=== PATIENT | female | born 1940 | race Hispanic/Latino ===

== ENCOUNTER 2019-06-12 21:30 | Emergency (ER) | payer OTHER ==
[2019-06-12] MEDS ORDERED: NA CHLORIDE 0.9% 1,000 ML ONE (22:27)
[2019-06-12] MEDS ORDERED: FENTANYL CITR 100 MCG/2 ML ONE (22:27)
[2019-06-12] MEDS ORDERED: ONDANSETRON 4 MG/2 ML VIAL ONE (22:27)
[2019-06-12 22:29] LABS: Absolute Lymphocytes (CBC) 1.9 K/uL (0.7-4.9); Basophils % 0.4 % (0-1.3); Hematocrit 35.3 % (36.0-45.0); Lymphocytes % 24.8 % (15.3-44.8); MPV 10.5 fL (7.6-11.3); RBC Red Blood Cell Count 4.18 M/uL (3.86-4.86)
[2019-06-12 22:45] LABS: Albumin 3.1 g/dL (3.4-5.0); Bilirubin Direct 0.1 mg/dL (0-0.2); Bilirubin Total 0.2 mg/dL (0.2-1.0); Potassium 3.9 mmol/L (3.5-5.1); Protein, Total 7.1 g/dL (6.4-8.2)
[2019-06-12 23:54] LABS: Urine Blood NEGATIVE (NEG); Urine Glucose TRACE (NEG); Urine Protein 2+ (NEG); Urine Specific Gravity >1.030 (1.005-1.030)
[2019-06-12 23:55] LABS: Calcium Oxalate Crystals- Ur MODERATE (NONE SEEN); Urine Bacteria >50 /HPF (<20); Urine Culture Reflex Order REFLEXED; Urine RBC NONE SEEN /HPF (NONE SEEN)
[2019-06-13] MEDS ORDERED: CEFTRIAXONE 1000 MG/VIAL ONE (00:49)
[2019-06-13] MEDS ORDERED: NA CHLORIDE 0.9% 50 ML IV ONE (00:49)
--- NOTE | 2019-06-13 01:17 | EDPHYS ---
Physician Documentation [facility] Name: Alexa Palacios Age: 78 yrs Sex: Female : 1940 Arrival Date: 06/12/2019 Time: 21:33 Bed 28 Private MD: ED Physician Faheem Bedoya HPI: 06/13 01:18 This 78 yrs old Female presents to ER via Wheelchair with complaints of Abd gs Pain > 50 y/o. 01:18 The patient presents with abdominal pain in the lower abdomen. Onset: The gs symptoms/episode began/occurred yesterday. The symptoms do not radiate. Associated signs and symptoms: Pertinent positives: nausea and vomiting. The symptoms are described as intermittent. Modifying factors: The symptoms are alleviated by nothing, the symptoms are aggravated by nothing. Severity of pain: At its worst the pain was moderate in the emergency department the pain is unchanged. The patient has experienced similar episodes in the past, a few times. Historical: - Allergies: 06/12 21:34 No Known Allergies; la1 - PMHx: 21:34 Diabetes - NIDDM; Hypertension; la1 - PSHx: 21:34 Cholecystectomy; ; Appendectomy; la1 - Immunization history:: Adult Immunizations up to date. - Social history:: Smoking status: Patient/guardian denies using tobacco. - Ebola Screening: : No symptoms or risks identified at this time. ROS: 06/13 01:18 All other systems are negative. gs Exam: 01:18 Head/Face: Normocephalic, atraumatic. Eyes: Pupils equal round and reactive to light, gs extra-ocular motions intact. Lids and lashes normal. Conjunctiva and sclera are non-icteric and not injected. Cornea within normal limits. Periorbital areas with no swelling, redness, or edema. ENT: Nares patent. No nasal discharge, no septal abnormalities noted. Tympanic membranes are normal and external auditory canals are clear. Oropharynx with no redness, swelling, or masses, exudates, or evidence of obstruction, uvula midline. Mucous membranes moist. Neck: Trachea midline, no thyromegaly or masses palpated, and no cervical lymphadenopathy. Supple, full range of motion without nuchal rigidity, or vertebral point tenderness. No Meningismus. Chest/axilla: Normal chest wall appearance and motion. Nontender with no deformity. No lesions are appreciated. Cardiovascular: Regular rate and rhythm with a normal S1 and S2. No gallops, murmurs, or rubs. Normal PMI, no JVD. No pulse deficits. Respiratory: Lungs have equal breath sounds bilaterally, clear to auscultation and percussion. No rales, rhonchi or wheezes noted. No increased work of breathing, no retractions or nasal flaring. 01:18 Back: No spinal tenderness. No costovertebral tenderness. Full range of motion. Skin: Warm, dry with normal turgor. Normal color with no rashes, no lesions, and no evidence of cellulitis. MS/ Extremity: Pulses equal, no cyanosis. Neurovascular intact. Full, normal range of motion. Neuro: Awake and alert, GCS 15, oriented to person, place, time, and situation. Cranial nerves II-XII grossly intact. Motor strength 5/5 in all extremities. Sensory grossly intact. Cerebellar exam normal. Normal gait. 01:18 Constitutional: The patient appears alert, awake. 01:18 ECG was reviewed by the Attending Physician. 01:18 Abdomen/GI: Palpation: moderate abdominal tenderness, in the right lower quadrant and left lower quadrant, rebound tenderness, is not appreciated. Vital Signs: 06/12 21:37 Pulse 77; Resp 16; Temp 97.8; Pulse Ox 97% on R/A; Weight 112.49 kg; Height 5 ft. 1 in. la1 (154.94 cm); Pain 8/10; 21:37 BP 104 / 71; la1 22:38 BP 114 / 55; Pulse 70; Resp 16; Pulse Ox 95% on R/A; la1 06/13 00:20 BP 110 / 55; Pulse 73; Resp 16; Pulse Ox 97% on 2 lpm NC; la1 01:37 BP 115 / 74; Pulse 73; Resp 16; Pulse Ox 98% on R/A; la1 06/12 21:37 Body Mass Index 46.86 (112.49 kg, 154.94 cm) la1 MDM: 06/12 22:07 Patient medically screened. 06/13 01:18 Differential diagnosis: AAA, pancreatitis, urinary tract infection. Data reviewed: vital signs, nurses notes, lab test result(s), EKG, radiologic studies. Counseling: I had a detailed discussion with the patient and/or guardian regarding: the historical points, exam findings, and any diagnostic results supporting the discharge/admit diagnosis, the need for outpatient follow up. Response to treatment: the patient's symptoms have markedly improved after treatment. 06/12 22:08 Order name: Basic Metabolic Panel; Complete Time: 00:40 06/12 22:08 Order name: CBC with Diff 06/12 22:08 Order name: Hepatic Function 06/12 22:08 Order name: Lipase 06/12 22:08 Order name: Urine Microscopic Only; Complete Time: 00:40 06/12 22:11 Order name: CBC with Automated Diff; Complete Time: 00:40 EDMS 06/12 22:08 Order name: CT Abd/Pelvis - IV Contrast Only 06/12 22:47 Order name: Liver (Hepatic) Function; Complete Time: 00:40 EDMS 06/12 22:47 Order name: Lipase; Complete Time: 00:40 EDMS 06/12 23:36 Order name: Abdomen EDNY 06/12 23:41 Order name: Urine Dipstick--Ancillary (enter results); Complete Time: 00:40 mw2 06/12 23:59 Order name: Urine Culture [facility] 06/12 22:08 Order name: IV Saline Lock; Complete Time: 22:30 06/12 22:08 Order name: Labs collected and sent; Complete Time: 22:30 06/12 22:08 Order name: EKG - Nurse/Tech; Complete Time: 22:36 06/12 22:08 Order name: Urine Dipstick-Ancillary (obtain specimen); Complete Time: 23:49 gs EC:18 Rate is 71 beats/min. Rhythm is regular. MS interval is normal. QRS interval is normal. gs T waves are Normal. No ST changes noted. Clinical impression: Abnormal EKG without significant change. Interpreted by me. Administered Medications: 06/12 22:32 Drug: Zofran 4 mg Route: IVP; Site: left forearm; la1 23:51 Follow up: Response: No adverse reaction :32 Drug: fentaNYL (PF) 25 mcg {Note: rass 1.} Route: IVP; Site: left forearm; la1 23:50 Follow up: Response: RASS: Alert and Calm (0) la1 22:32 Drug: NS 0.9% 1000 ml Route: IV; Rate: 125 ml/hr; Site: left forearm; la1 06/13 01:39 Follow up: IV Status: Infusion continued upon admission la1 00:50 Drug: Rocephin - (cefTRIAXone) 1 grams Route: IVPB; Infused Over: 30 mins; Site: left la1 forearm; 01:39 Follow up: IV Status: Completed infusion la1 Disposition: 06/13/19 01:17 Discharged to Home. Impression: Lower abdominal pain, unspecified, Urinary tract infection, site not specified. - Condition is Stable. - Discharge Instructions: Abdominal Pain, Adult, Urinary Tract Infection, Adult, [id number]. - Prescriptions for Keflex 500 mg Oral Capsule - take 1 capsule by ORAL route every 12 hours for 7 days; 14 capsule. - Medication Reconciliation Form, Thank You Letter, Antibiotic Education, Prescription Opioid Use form. - Follow up: Private Physician; When: 2 - 3 days; Reason: Re-evaluation by your physician. Signatures: Dispatcher [employer] [facility] Sahil Clayton RN RN la1 Faheem Bedoya MD MD Corrections: (The following items were deleted from the chart) 01:43 01:17 06/13/2019 01:17 Discharged to Home. Impression: Lower abdominal pain, la1 unspecified; Urinary tract infection, site not specified. Condition is Stable. Forms are Medication Reconciliation Form, Thank You Letter, Antibiotic Education, Prescription Opioid Use. Follow up: Private Physician; When: 2 - 3 days; Reason: Re-evaluation by your physician. gs
--- NOTE | 2019-06-13 01:17 | ER ---
Nurse's Notes [facility] Name: Alexa Palacios Age: 78 yrs Sex: Female : 1940 Arrival Date: 06/12/2019 Time: 21:33 Bed 28 Private MD: Diagnosis: Lower abdominal pain, unspecified;Urinary tract infection, site not specified Presentation: 06/12 21:34 Presenting complaint: Patient states: I have been having bad abd pain since 1500, la1 vomited x1, normal BM this morning. Transition of care: patient was not received from another setting of care. Onset of symptoms was June 12, 2019. Risk Assessment: Do you want to hurt yourself or someone else? Patient reports no desire to harm self or others. Initial Sepsis Screen: Does the patient meet any 2 criteria? No. Patient's initial sepsis screen is negative. Does the patient have a suspected source of infection? No. Patient's initial sepsis screen is negative. Care prior to arrival: None. 21:34 Method Of Arrival: Wheelchair la1 21:34 Acuity: ÁNGELA 3 la1 Historical: - Allergies: 21:34 No Known Allergies; la1 - PMHx: 21:34 Diabetes - NIDDM; Hypertension; la1 - PSHx: 21:34 Cholecystectomy; ; Appendectomy; la1 - Immunization history:: Adult Immunizations up to date. - Social history:: Smoking status: Patient/guardian denies using tobacco. - Ebola Screening: : No symptoms or risks identified at this time. Screenin:59 Abuse screen: Denies threats or abuse. Denies injuries from another. Nutritional aj1 screening: No deficits noted. Tuberculosis screening: No symptoms or risk factors identified. Assessment: 21:59 General: Appears in no apparent distress. uncomfortable, Behavior is calm, cooperative, aj1 appropriate for age. Pain: Complains of pain in right lower quadrant and left lower quadrant Pain does not radiate. Neuro: Level of Consciousness is awake, alert, obeys commands. Cardiovascular: Patient's skin is warm and dry. Respiratory: Airway is patent Respiratory effort is even, unlabored, Respiratory pattern is regular, symmetrical. GI: Abdomen is round non-distended, Bowel sounds present X 4 quads. Abd is soft X 4 quads Abdomen is tender to palpation X 4 quads. Reports nausea, vomiting, Patient currently denies diarrhea. : No signs and/or symptoms were reported regarding the genitourinary system. EENT: No signs and/or symptoms were reported regarding the EENT system. Derm: No signs and/or symptoms reported regarding the dermatologic system. Skin is pink, warm \T\ dry. normal. Musculoskeletal: No signs and/or symptoms reported regarding the musculoskeletal system. Circulation, motion, and sensation intact. 06/13 00:21 Reassessment: Patient appears in no apparent distress at this time. No changes from la1 previously documented assessment. Patient and/or family updated on plan of care and expected duration. Pain level reassessed. Patient is alert, oriented x 3, equal unlabored respirations, skin warm/dry/pink. Vital Signs: 06/12 21:37 Pulse 77; Resp 16; Temp 97.8; Pulse Ox 97% on R/A; Weight 112.49 kg; Height 5 ft. 1 in. la1 (154.94 cm); Pain 8/10; 21:37 BP 104 / 71; la1 22:38 BP 114 / 55; Pulse 70; Resp 16; Pulse Ox 95% on R/A; la1 06/13 00:20 BP 110 / 55; Pulse 73; Resp 16; Pulse Ox 97% on 2 lpm NC; la1 01:37 BP 115 / 74; Pulse 73; Resp 16; Pulse Ox 98% on R/A; la1 06/12 21:37 Body Mass Index 46.86 (112.49 kg, 154.94 cm) la1 ED Course: 06/12 21:33 Patient arrived in ED. la1 21:34 Arm band placed on left wrist. la1 21:36 Triage completed. la1 21:54 Becca Deleon, RN is Primary Nurse. aj1 21:54 Faheem Bedoya MD is Attending Physician. gs 21:59 Patient has correct armband on for positive identification. Bed in low position. Call aj1 light in reach. 21:59 No provider procedures requiring assistance completed. aj1 22:12 Radiology exam delayed due to lab results not completed at this time. (BUN/Creatinine). mw3 22:39 Inserted saline lock: 22 gauge in left forearm, using aseptic technique. Blood la1 collected. 22:40 EKG done, by ED staff, reviewed by Becca Deleon RN. jp3 23:56 Abdomen In Process Unspecified. EDMS 06/13 00:05 CT completed. Patient tolerated procedure well. Patient moved to CT via stretcher. Patient moved back from MS. 01:38 IV discontinued, intact, bleeding controlled, No redness/swelling at site. Pressure la1 dressing applied. Administered Medications: 06/12 22:32 Drug: Zofran 4 mg Route: IVP; Site: left forearm; la1 23:51 Follow up: Response: No adverse reaction la1 22:32 Drug: fentaNYL (PF) 25 mcg {Note: rass 1.} Route: IVP; Site: left forearm; la1 23:50 Follow up: Response: RASS: Alert and Calm (0) la1 22:32 Drug: NS 0.9% 1000 ml Route: IV; Rate: 125 ml/hr; Site: left forearm; la1 06/13 01:39 Follow up: IV Status: Infusion continued upon admission la1 00:50 Drug: Rocephin - (cefTRIAXone) 1 grams Route: IVPB; Infused Over: 30 mins; Site: left la1 forearm; 01:39 Follow up: IV Status: Completed infusion la1 Outcome: 01:17 Discharge ordered by . 01:38 Discharged to home ambulatory. la1 01:38 Condition: stable 01:38 Discharge instructions given to patient, Instructed on discharge instructions, follow up and referral plans. medication usage, Demonstrated understanding of instructions, follow-up care, medications, Prescriptions given X 1. 01:43 Patient left the ED. la1 Signatures: Dispatcher [employer] EDAL Becca Deleon RN RN Graham Morales Sahil Clayton RN RN la1 Faheem Bedoya MD MD gs Willis, Michelle 3 Gilles Rojas jp3 Corrections: (The following items were deleted from the chart) 06/12 23:28 23:15 Urine collected: clean catch specimen, clear, nayeli colored, jp3 jp3
--- NOTE | 2019-06-13 10:20 | EKG ---
Test Date: 2019-06-12 Test Time: 22:37:43 [employer]: SALONI MEASUREMENT RESULTS: Intervals: Rate: 71 DC: 172 QRSD: 82 QT: 428 QTc: 465 [place]: P: 39 DC: 172 QRS: -9 T: 22 INTERPRETIVE STATEMENTS: Sinus rhythm with occasional premature ventricular complexes Otherwise normal ECG No previous ECG available for comparison Electronically Signed On 06-13-19 10:20:06 CDT by Levon Barnard
--- NOTE | 2019-06-14 11:11 | RAD REPORT ---
EXAM DESCRIPTION: CT - Abdomen Pelvis Wo Contrast - 06/13/2019 6:21 am CLINICAL HISTORY: 78-year-old female with abdominal pain with vomiting TECHNIQUE: Axial CT imaging of the abdomen and pelvis was performed. Sagittal and coronal reconstr ucted images were then performed. The CT study is performed according to ALARA (as low as reasonably achievable) or ALARA/IMAGE GENTLY, with automatic adjustment of mA and/or kV according to patient siz e. Performed on: 06/12/2019 at 11:44 PM Comparison: None. FINDINGS: Lung bases: The lung bases are clear. Liver: The liver is normal in size and configuration. No focal hepatic abnormalities are appreciated on this unenhanced scan. Liver attenuation is within normal limits. Spleen: The spleen is normal is size, configuration and attenuation. No focal splenic abnormalities a re appreciated on this unenhanced scan. Gallbladder and bile duct: The gallbladder is surgically absent. There is no biliary ductal dilatat ion. Pancreas: The pancreas is grossly normal in size and configuration. Adrenal Glands: The adrenal glands are normal in size and configuration. Kidneys: The kidneys are normal in size and configuration. There is no evidence of hydronephrosis. Th ere is no evidence of nephrolithiasis. No focal renal abnormalities are identified. Stomach: The stomach is grossly normal. There is no definite hiatal hernia. Bowel: The bowel gas pattern is non specific and non obstructive. Appendix: The appendix is surgically absent. Free air: There is no evidence of free air. Free fluid: There is no evidence of free fluid. Vasculature: The aorta is normal in caliber and contour. There are atherosclerotic calcifications samuel ng the abdominal aorta and major branch vessels. The inferior vena cava is grossly unremarkable. Lymphadenopathy: No pathologic lymphadenopathy is identified. Bladder: The bladder is incompletely distended on this examination. Reproductive: The uterus is surgically absent. Bones: There are moderate degenerative changes of the thoracolumbar spine. There are vacuum discs at multiple levels. Soft tissues: There is a small fat-containing ventral umbilical hernia. There are postsurgical change s along the lower anterior abdominal wall in the midline below the level of the umbilicus which may b e related to a prior . IMPRESSION: 1. No evidence of acute intra-abdominal or intrapelvic pathology. 2. Remote appendectomy, cholecystectomy and hysterectomy. 3. Degenerative changes of the skeletal and vascular structures. 4. Small fat-containing ventral umbilical hernia and postsurgical changes along the anterior lower ab dominal wall in the midline below the level of the umbilicus likely related to prior . Electronically signed by: Analilia Ramirez DO 06/13/2019 12:10 AM CDT Due to temporary technical issues with the PACS/Fluency reporting system, reports are being signed by the in house radiologist as a courtesy to ensure prompt reporting. The interpreting radiologist is f ully responsible for the content of the report.
== END 2019-06-13 01:43 | disposition home or self-care (01) ==
LOC: ER 21:30
DX: N39.0 Urinary tract infection, site not specified (principal); I10 Essential (primary) hypertension
CPT/HCPCS: 96365; 96361; 93005; 87088; 85025; 87086; 80048; 36415; 80076; 87077; 87186; 83690; 74176; 96375; 99284; J3010; J7030; J2405; 81003; 81015